=== PATIENT | male | born 1950 ===

== ENCOUNTER 2017-09-18 10:22 | Emergency (ER) | payer MEDICARE ==
[2017-09-18 10:23] VITALS: BMI 22.9
[2017-09-18 10:33] VITALS: RESP 18; TEMP 98.1; O2SAT 99
--- NOTE | 2017-09-18 11:10 | C.PDOC ---
History Of Present Illness 67 year old male presents to the ED for evaluation of cough that is productive of clear phlegm which began after he received a flu shot 4 days ago. Patient denies fever, chills, chest pain, and shortness of breath at this time. Time Seen by Provider: 09/18/17 11:01 Chief Complaint (Nursing): Cough, Cold, Congestion History Per: Patient History/Exam Limitations: no limitations Onset/Duration Of Symptoms: Days (4) Current Symptoms Are (Timing): Still Present Associated Symptoms: Cough, Sputum (clear). denies: Fever, Chills Ear Symptoms: Bilateral: None Additional History Per: Patient Past Medical History Reviewed: Historical Data, Nursing Documentation, Vital Signs Vital Signs: Last Vital Signs Temp 98.1 F 09/18/17 10:31 Pulse 95 H 09/18/17 10:31 Resp 18 09/18/17 10:31 BP 119/61 09/18/17 10:31 Pulse Ox 99 09/18/17 11:10 - Medical History PMH: Benign Prostatic Hyperplasia, CAD, HTN, Hypercholesterolemia Denies: Chronic Kidney Disease Surgical History: No Surg Hx - [facility] Procedures CORONAR ARTERIOGR-2 CATH (12/24/14) CORONARY ARTERY STENT INSERTION [id number] (12/24/14) DX ULTRASOUND NEC (01/31/14) INSERTION OF ONE VASCULAR STENT (12/24/14) LAPAROSCOPIC ROBOTIC ASSISTED PROCEDURE (04/21/14) LEFT HEART CARDIAC CATH (12/24/14) LT HEART ANGIOCARDIOGRAM (12/24/14) PERCUTAN NEEDLE BIOPSY OF PROSTATE (01/31/14) PERCUTANEOUS TRANSLUMINAL CORONARY ANGIOPLASTY [PTCA] (12/24/14) PROCEDURE ON SINGLE VESSEL (12/24/14) RADICAL PROSTATECTOMY (04/21/14) SIMP EXC LYMPH STRUC NEC (04/21/14) Family History: States: Unknown Family Hx - Social History Hx Tobacco Use: No Hx Alcohol Use: No Hx Substance Use: No - Immunization History Hx Tetanus Toxoid Vaccination: No Hx Influenza Vaccination: No Hx Pneumococcal Vaccination: No Review Of Systems Constitutional: Negative for: Fever, Chills Cardiovascular: Negative for: Chest Pain Respiratory: Positive for: Cough, Sputum (clear). Negative for: Shortness of Breath Physical Exam - Physical Exam Appears: Non-toxic, No Acute Distress Skin: Normal Color, Warm, Dry Head: Atraumatic, Normacephalic Eye(s): bilateral: Normal Inspection Ear(s): Bilateral: Normal Nose: Normal, No Discharge Oral Mucosa: Moist Throat: Normal, No Erythema, No Exudate Neck: Supple Chest: Symmetrical, No Deformity, No Tenderness Cardiovascular: Rhythm Regular Respiratory: Normal Breath Sounds, No Rales, No Rhonchi, No Wheezing Neurological/Psych: Oriented x3, Normal Speech, Normal Cognition ED Course And Treatment O2 Sat by Pulse Oximetry: 99 (on RA) Pulse Ox Interpretation: Normal - Radiology CXR: Viewed By Me, Read By Radiologist CXR Interpretation: Yes: No Acute Disease Progress Note: CXR ordered and reviewed. Medical Decision Making Medical Decision Making: IMPRESSION: No focal consolidation, significant pleural effusion, or definite pneumothorax identified. Disposition Counseled Patient/Family Regarding: Diagnosis, Need For Followup - Disposition Referrals: Juli Gomez MD [Medical Doctor] - Disposition: HOME/ ROUTINE Disposition Time: 12:07 Condition: GOOD Additional Instructions: Por favor, rios un seguimiento con espinal mdico en unos wilder. Regrese a la henrietta de emergencias por cualquier sntoma peor, fiebre, escalofros. Please follow up with your doctor in a few days. Return to ER for any worse symptoms, fever, chills. Instructions: Acute Bronchitis (ED) Forms: Gen Discharge Inst Wolof, [facility] (Wolof) - Clinical Impression Clinical Impression: Bronchitis - PA / ADJUNCT INSTRUCTOR CHEMISTRY / Resident Statement MD/DO has reviewed & agrees with the documentation as recorded. - Scribe Statement The provider has reviewed the documentation as recorded by the Scribe (Kori Felipe) All medical record entries made by the Scribe were at my direction and personally dictated by me. I have reviewed the chart and agree that the record accurately reflects my personal performance of the history, physical exam, medical decision making, and the department course for this patient. I have also personally directed, reviewed, and agree with the discharge instructions and disposition.
--- NOTE | 2017-09-18 11:49 | RAD ---
HISTORY: cough phlegm COMPARISON: Chest x-ray performed 08/22/15 TECHNIQUE: Chest PA and lateral FINDINGS: LUNGS: No focal consolidation. Please note that chest x-ray has limited sensitivity for the detection of pulmonary masses. PLEURA: No significant pleural effusion identified. No definite pneumothorax . CARDIOVASCULAR: The cardiomediastinal silhouette appears within normal limits of size. OSSEOUS STRUCTURES: Degenerative changes. VISUALIZED UPPER ABDOMEN: Unremarkable. OTHER FINDINGS: None. IMPRESSION: No focal consolidation, significant pleural effusion, or definite pneumothorax identified.
[2017-09-18 12:25] VITALS: BP 135/64; PULSE 63
== END 2017-09-18 12:24 | disposition home or self-care (01) ==
LOC: C.ER 10:22
DX: J40 Bronchitis, not specified as acute or chronic (principal)

== ENCOUNTER 2018-09-20 07:58 | Emergency (ER) | payer MEDICARE ==
[2018-09-20 07:59] VITALS: BMI 22.9
[2018-09-20 08:16] VITALS: BP 153/68; PULSE 72; RESP 19; TEMP 97.8; O2SAT 100
--- NOTE | 2018-09-20 08:29 | C.PDOC ---
History Of Present Illness Patient reports 3 weeks of cough with cleal phlegm. Denies any other symptoms such as fever, vomiting, chest pain, dyspnea, congestion, headache. He does report that he has lower back pain when he coughs. He denies leg weakness or numbness, and urinary and bowel incontinence. He is able to ambulate with no difficulty. He states that he was instructed to gargle salt water for the cough however it has not been helping. He has not tried any OTC medications for the cough or back pain. Time Seen by Provider: 09/20/18 08:03 Chief Complaint (Nursing): Cough, Cold, Congestion Past Medical History Reviewed: Historical Data, Nursing Documentation, Vital Signs Vital Signs: Last Vital Signs Temp 97.8 F 09/20/18 08:13 Pulse 72 09/20/18 08:13 Resp 19 09/20/18 08:13 BP 153/68 H 09/20/18 08:13 Pulse Ox 100 09/20/18 08:13 - Medical History PMH: Benign Prostatic Hyperplasia, CAD, HTN, Hypercholesterolemia Denies: Chronic Kidney Disease - [facility] Procedures CORONAR ARTERIOGR-2 CATH (12/24/14) CORONARY ARTERY STENT INSERTION [id number] (12/24/14) DX ULTRASOUND NEC (01/31/14) INSERTION OF ONE VASCULAR STENT (12/24/14) LAPAROSCOPIC ROBOTIC ASSISTED PROCEDURE (04/21/14) LEFT HEART CARDIAC CATH (12/24/14) LT HEART ANGIOCARDIOGRAM (12/24/14) PERCUTAN NEEDLE BIOPSY OF PROSTATE (01/31/14) PERCUTANEOUS TRANSLUMINAL CORONARY ANGIOPLASTY [PTCA] (12/24/14) PROCEDURE ON SINGLE VESSEL (12/24/14) RADICAL PROSTATECTOMY (04/21/14) SIMP EXC LYMPH STRUC NEC (04/21/14) Family History: States: Unknown Family Hx - Social History Hx Tobacco Use: No Hx Alcohol Use: No Hx Substance Use: No - Immunization History Hx Tetanus Toxoid Vaccination: No Hx Influenza Vaccination: Yes Hx Pneumococcal Vaccination: Yes Review Of Systems Except As Marked, All Systems Reviewed And Found Negative. Constitutional: Negative for: Fever, Chills Cardiovascular: Negative for: Chest Pain Respiratory: Positive for: Cough. Negative for: Shortness of Breath Gastrointestinal: Negative for: Nausea, Vomiting Genitourinary: Negative for: Dysuria, Incontinence Skin: Negative for: Rash Neurological: Negative for: Numbness Physical Exam - Physical Exam Appears: Well, Non-toxic, No Acute Distress Skin: Normal Color, Warm, Dry Head: Atraumatic Oral Mucosa: Moist Chest: Symmetrical Cardiovascular: Rhythm Regular Respiratory: Normal Breath Sounds Gastrointestinal/Abdominal: Normal Exam Back: Normal Inspection, No CVA Tenderness, No Vertebral Tenderness, No Decreased ROM, No Muscle Spasm, No Paraspinal Tenderness Extremity: Bilateral: Atraumatic, Normal Color And Temperature, Normal ROM Neurological/Psych: Oriented x3 Gait: Steady ED Course And Treatment O2 Sat by Pulse Oximetry: 100 Medical Decision Making Medical Decision Making: Patient with normal vitals and unremarkable exam. Will write Rx for z-pack given 3 weeks of cough. 600mg ibuprofen PO given for back pain. He is able to ambulate without difficulty and reports no weakness or numbness in his lower extremities. No bowel or bladder dysfunction as well. Patient advised to continue with NSAIDs at home for back pain and take over the counter cough medication as needed. Disposition - Disposition Disposition: HOME/ ROUTINE Disposition Time: 08:30 Condition: STABLE Additional Instructions: ANAMARIA NORTON, thank you for letting us take care of you today. Your provider was Dania Ruano MD and you were treated for BACK PAIN. The emergency medical care you received today was directed at your acute symptoms. If you were prescribed any medication, please fill it and take as directed. It may take several days for your symptoms to resolve. Return to the Emergency Department if your symptoms worsen, do not improve, or if you have any other problems. Please contact your doctor or call one of the physicians/clinics you have been referred to that are listed on the Patient Visit Information form that is included in your discharge packet. Bring any paperwork you were given at discharge with you along with any medications you are taking to your follow up visit. Our treatment cannot replace ongoing medical care by a primary care provider outside of the emergency department. Thank you for allowing the [facility] team to be part of your care today. If you had an X-Ray or CT scan: A Radiologist will review the ED reading if any change in treatment is needed we will contact you. If you had a blood, urine, or wound culture: It will take several days for the results, if any change in treatment is needed we will contact you. If you had an STI test: It will take 48 hours for the results. Please call after 1 week if you have not heard back. Instructions: Acute Bronchitis, Adult (DC) Forms: [facility] (Kyrgyz) - Clinical Impression Clinical Impression: Low back pain, Acute bronchitis
== END 2018-09-20 08:50 | disposition home or self-care (01) ==
LOC: C.ER 07:58
DX: J20.9 Acute bronchitis, unspecified (principal); M54.5 Low back pain

== ENCOUNTER 2018-11-30 12:12 | Emergency (ER) | payer MEDICARE ==
[2018-11-30 12:12] VITALS: BMI 22.9
[2018-11-30 12:19] VITALS: BP 149/72; PULSE 66; RESP 20; TEMP 98.5; O2SAT 100
--- NOTE | 2018-11-30 12:58 | C.PDOC ---
History Of Present Illness Patient is a 68 year old male who presents to the ED c/o discomfort in throat with mucus. Patient states that he has just arrived from the [place] on Nov.23 and had testing done there, which showed some type of bacteria that he was prescribed antibiotics for. He states that he has not taken any of these antibiotics. He denies any fever, cough, runny nose, or SOB. Time Seen by Provider: 11/30/18 12:24 Chief Complaint (Nursing): ENT Problem History Per: Patient Onset/Duration Of Symptoms: Days Current Symptoms Are (Timing): Still Present Symptoms Have Been: Continuous Past Medical History Reviewed: Historical Data, Nursing Documentation, Vital Signs Vital Signs: Last Vital Signs Temp 98.5 F 11/30/18 12:14 Pulse 66 11/30/18 12:14 Resp 20 11/30/18 12:14 BP 149/72 11/30/18 12:14 Pulse Ox 100 11/30/18 12:14 - Medical History PMH: Benign Prostatic Hyperplasia, CAD, HTN, Hypercholesterolemia Denies: Chronic Kidney Disease Surgical History: No Surg Hx - [facility] Procedures CORONAR ARTERIOGR-2 CATH (12/24/14) CORONARY ARTERY STENT INSERTION [id number] (12/24/14) DX ULTRASOUND NEC (01/31/14) INSERTION OF ONE VASCULAR STENT (12/24/14) LAPAROSCOPIC ROBOTIC ASSISTED PROCEDURE (04/21/14) LEFT HEART CARDIAC CATH (12/24/14) LT HEART ANGIOCARDIOGRAM (12/24/14) PERCUTAN NEEDLE BIOPSY OF PROSTATE (01/31/14) PERCUTANEOUS TRANSLUMINAL CORONARY ANGIOPLASTY [PTCA] (12/24/14) PROCEDURE ON SINGLE VESSEL (12/24/14) RADICAL PROSTATECTOMY (04/21/14) SIMP EXC LYMPH STRUC NEC (04/21/14) Family History: States: Unknown Family Hx - Social History Hx Tobacco Use: No Hx Alcohol Use: No Hx Substance Use: No - Immunization History Hx Tetanus Toxoid Vaccination: No Hx Influenza Vaccination: Yes Hx Pneumococcal Vaccination: Yes Review Of Systems Constitutional: Negative for: Fever ENT: Positive for: Throat Pain. Negative for: Nose Discharge Respiratory: Negative for: Cough, Shortness of Breath Physical Exam - Physical Exam Appears: Non-toxic, No Acute Distress, Other (speaking full sentences ) Skin: Normal Color, Warm, Dry Head: Atraumatic, Normacephalic Oral Mucosa: Moist Throat: No Exudate, No Drooling, Other (No tonsilar swelling. Uvula midline and normal in appearance ) Neck: Normal ROM, Supple Chest: Symmetrical, No Deformity Cardiovascular: Rhythm Regular Respiratory: Normal Breath Sounds, No Rales, No Rhonchi, No Wheezing Gastrointestinal/Abdominal: Soft, No Tenderness Extremity: Normal ROM Neurological/Psych: Oriented x3, Normal Speech, Normal Cognition ED Course And Treatment O2 Sat by Pulse Oximetry: 100 (on RA) Pulse Ox Interpretation: Normal Progress Note: Patient c/o sore throat and sputum in throat. He was seen in [place] and had "pharyngeal culture" done, which showed Strep A that is resistant to PCN and other PO antibiotics, sensitive to amikacin, genatamicin, etc. Patient has normal pharyngeal exam - will repeat strep swab and throat culture, and refer patient to ENT. Will not start antibiotics at this time. Disposition Counseled Patient/Family Regarding: Studies Performed, Diagnosis, Need For Followup, Rx Given - Disposition Referrals: Donald Mott MD [Staff Provider] - Juli Gomez MD [Medical Doctor] - Disposition: HOME/ ROUTINE Disposition Time: 13:10 Condition: STABLE Additional Instructions: FOLLOW UP WITH EAR NOSE THROAT SPECIALIST WITHIN 1 WEEK IF YOUR CULTURE COMES BACK POSITIVE I WILL CALL YOU AND LET YOU KNOW RETURN TO EMERGENCY ROOM IF SYMPTOMS BECOME WORSE SIGUE CON EL ESPECIALISTA EN GARGANTA DE OTRA NARIZ DENTRO DE 1 SEMANA SI TU CULTURA VUELVE POSITIVO TE LLAMAR Y TE HACEMOS SABER VUELVA A LA ISIDORO DE EMERGENCIA SI LOS SNTOMAS SE HACEN PEOR Prescriptions: Ibuprofen [Motrin Tab] 600 mg PO Q6 PRN #30 tab PRN Reason: fever/pain Phenol/Glycerin [Chloraseptic Max Sagamore] 1 spray MM Q6 PRN #1 spray PRN Reason: THROAT PAIN Instructions: Sore Throat, Adult (DC) Forms: [facility] (Syriac) Print Language: LITHUANIAN - Clinical Impression Clinical Impression: Sore throat - Scribe Statement The provider has reviewed the documentation as recorded by the Scribrhoda Velazquez All medical record entries made by the Scribe were at my direction and personally dictated by me. I have reviewed the chart and agree that the record accurately reflects my personal performance of the history, physical exam, medical decision making, and the department course for this patient. I have also personally directed, reviewed, and agree with the discharge instructions and disposition.
== END 2018-11-30 13:45 | disposition home or self-care (01) ==
LOC: C.ER 12:12
DX: J02.9 Acute pharyngitis, unspecified (principal)

== ENCOUNTER 2018-12-08 03:59 | Emergency (ER) | payer MEDICARE ==
[2018-12-08 03:59] VITALS: BMI 22.9
[2018-12-08 04:19] VITALS: RESP 18
--- NOTE | 2018-12-08 04:21 | C.PDOC ---
History Of Present Illness 68 yr old male w/ hx of CAD, HTN, HLD p/w cough, nasal congestion. Pt notes x3 months of intermittent cough and nasal congestion. He notes that he was here one week prior and notes that his symptoms have not improved. He notes that he was seen for similar issues that have remitted and returned 3 months ago. No fevers, chills or night sweats. No neck stiffness. No fall or trauma. No headache. No sinus pain or pressure. No ear pain. No other complaints. Time Seen by Provider: 12/08/18 04:14 Chief Complaint (Nursing): Cough, Cold, Congestion Past Medical History Vital Signs: Last Vital Signs Temp 99.5 F 12/08/18 04:14 Pulse 98 H 12/08/18 04:14 Resp 18 12/08/18 04:14 BP 163/70 H 12/08/18 04:14 Pulse Ox 97 12/08/18 04:14 - Medical History PMH: Benign Prostatic Hyperplasia, CAD, HTN, Hypercholesterolemia Denies: [facility] Procedures CORONAR ARTERIOGR-2 CATH (12/24/14) CORONARY ARTERY STENT INSERTION [id number] (12/24/14) DX ULTRASOUND NEC (01/31/14) INSERTION OF ONE VASCULAR STENT (12/24/14) LAPAROSCOPIC ROBOTIC ASSISTED PROCEDURE (04/21/14) LEFT HEART CARDIAC CATH (12/24/14) LT HEART ANGIOCARDIOGRAM (12/24/14) PERCUTAN NEEDLE BIOPSY OF PROSTATE (01/31/14) PERCUTANEOUS TRANSLUMINAL CORONARY ANGIOPLASTY [PTCA] (12/24/14) PROCEDURE ON SINGLE VESSEL (12/24/14) RADICAL PROSTATECTOMY (04/21/14) SIMP EXC LYMPH STRUC NEC (04/21/14) Family History: States: Unknown Family Hx - Social History Hx Tobacco Use: No Hx Alcohol Use: Yes Hx Substance Use: No - Immunization History Hx Tetanus Toxoid Vaccination: No Hx Influenza Vaccination: No Hx Pneumococcal Vaccination: No Review Of Systems Constitutional: Negative for: Fever, Chills, Sweats, Weakness, Malaise Eyes: Negative for: Pain, Vision Change ENT: Positive for: Nose Congestion. Negative for: Ear Pain, Ear Discharge, Nose Pain Cardiovascular: Negative for: Chest Pain, Palpitations, Orthopnea, Paroxysmal Noc. Dyspnea Respiratory: Positive for: Cough. Negative for: Shortness of Breath, Hemoptysis, SOB with Excertion, Pleuritic Pain Gastrointestinal: Negative for: Nausea, Vomiting, Abdominal Pain, Diarrhea, Constipation Genitourinary: Negative for: Dysuria, Frequency, Hematuria Musculoskeletal: Negative for: Neck Pain, Shoulder Pain, Back Pain Skin: Negative for: Rash, Lesions Neurological: Negative for: Weakness, Numbness, Confusion, Seizures, Altered Mental Status Psych: Negative for: Anxiety Physical Exam - Physical Exam Appears: Well, Non-toxic Skin: Normal Color, Warm, Dry Head: Atraumatic, Normacephalic Eye(s): bilateral: Normal Inspection, PERRL, EOMI Ear(s): Bilateral: Normal Nose: Normal, No Flaring, No Epistaxis, No Deformity Oral Mucosa: Moist Tongue: Normal Appearing Lips: Normal Appearing Teeth: Normal Dentition Gingiva: Normal Appearing Throat: Normal, No Erythema, No Exudate Neck: Normal, Normal ROM, Trachea Midline, Supple (no meningeal signs) Chest: Symmetrical, No Deformity Cardiovascular: Rhythm Regular Respiratory: Normal Breath Sounds, No Decreased Breath Sounds, No Rales, No Rhonchi, No Stridor, No Wheezing Gastrointestinal/Abdominal: Normal Exam Back: Normal Inspection, No CVA Tenderness, No Vertebral Tenderness Extremity: Normal ROM, No Tenderness, No Calf Tenderness Neurological/Psych: Oriented x3, Normal Speech, Normal Cognition, Normal Motor ED Course And Treatment O2 Sat by Pulse Oximetry: 97 Medical Decision Making Medical Decision Makin yr old male w/ hx of CAD, HTN, HLD p/w nasal congestion, cough. Lungs CTA. No meningeal signs. No GI or complaints. Nasal congestion without signs of trauma. No complaints of CP or sob. No FND. Likely flu vs strep throat. No odynophagia, dysphagia or change in phonation. [id number] +FLU Negative strep CXR unremarkable FLu, will rx clear for d/c home with return indications and f/u. Pt agreeable to plan. Disposition - Disposition Referrals: [facility] [Outside] [facility] [Outside] [facility] [Outside] Juli Gomez MD [Medical Doctor] - Disposition: HOME/ ROUTINE Disposition Time: 05:57 Condition: GOOD Additional Instructions: ANAMARIA NORTON, thank you for letting us take care of you today. Your provider was Eric Guerrero and you were treated for SORE THROAT. The emergency medical care you received today was directed at your acute symptoms. If you were prescribed any medication, please fill it and take as directed. It may take several days for your symptoms to resolve. Return to the Emergency Department if your symptoms worsen, do not improve, or if you have any other problems. Please contact your doctor or call one of the physicians/clinics you have been referred to that are listed on the Patient Visit Information form that is included in your discharge packet. Bring any paperwork you were given at discharge with you along with any medications you are taking to your follow up visit. Our treatment cannot replace ongoing medical care by a primary care provider outside of the emergency department. Thank you for allowing the [facility] team to be part of your care today. If you had an X-Ray or CT scan: A Radiologist will review the ED reading if any change in treatment is needed we will contact you. If you had a blood, urine, or wound culture: It will take several days for the results, if any change in treatment is needed we will contact you. If you had an STI test: It will take 48 hours for the results. Please call after 1 week if you have not heard back. Prescriptions: Acetaminophen with Codeine [Tylenol with Codeine #3 Tablet] 1 each PO Q12H PRN 3 Days #6 tablet PRN Reason: Cough Oseltamivir Cap [Tamiflu] 75 mg PO BID 5 Days #10 cap Instructions: Influenza (ED), Upper Respiratory Infection (ED) Forms: [employer] (Nigerien), [employer] (Kittitian) Print Language: FAROESE - Clinical Impression Clinical Impression: Influenza, Viral URI
[2018-12-08 04:59] LABS: INFLUENZA A B POS FOR INFLUENZA A (NEGATIVE)
[2018-12-08 06:15] VITALS: BP 170/73; PULSE 85; TEMP 99.4
[2018-12-08 06:57] VITALS: O2SAT 97
--- NOTE | 2018-12-08 15:54 | RAD ---
Date of service: 12/08/2018 HISTORY: Cough COMPARISON: Comparison chest dated 09/18/2017. TECHNIQUE: Chest PA and lateral FINDINGS: LUNGS: No active pulmonary disease. PLEURA: No significant pleural effusion identified. No pneumothorax apparent. CARDIOVASCULAR: No aortic atherosclerotic calcification present. Normal cardiac size. No pulmonary vascular congestion. OSSEOUS STRUCTURES: Mild multilevel degenerative spondylosis of the thoracic spine VISUALIZED UPPER ABDOMEN: Normal. OTHER FINDINGS: None. IMPRESSION: No active disease.
== END 2018-12-08 06:15 | disposition home or self-care (01) ==
LOC: C.ER 03:59
DX: J11.1 Influenza due to unidentified influenza virus with other respiratory manifestations (principal)

== ENCOUNTER 2019-02-09 11:00 | Emergency (ER) | payer MEDICARE ==
[2019-02-09 11:00] VITALS: BMI 22.9
[2019-02-09 11:27] VITALS: RESP 16
[2019-02-09] MEDS ORDERED: Dexamethasone 4 mg/1 ml IM STA (12:00)
--- NOTE | 2019-02-09 12:27 | C.PDOC ---
History Of Present Illness 68 year old male presents to ED with complaint of burning sensation to the side of his left leg and foot for the past 2 weeks. Patient was seen by Dr. Gomez and was told everything was normal. Patient denies history of arterial disease and allergies to medications. He has a PMHx of hypertension. Patient denies trauma, fall, weakness, and numbness. Time Seen by Provider: 02/09/19 11:53 Chief Complaint (Nursing): Lower Extremity Problem/Injury History Per: Patient History/Exam Limitations: no limitations Onset/Duration Of Symptoms: Other (2 weeks) Current Symptoms Are (Timing): Still Present Past Medical History Reviewed: Historical Data, Nursing Documentation, Vital Signs Vital Signs: Last Vital Signs Temp 98.8 F 02/09/19 11:25 Pulse 57 L 02/09/19 11:25 Resp 16 02/09/19 11:25 BP 148/72 02/09/19 11:25 Pulse Ox 98 02/09/19 11:25 Primary Care Provider: Mick Bennett - Medical History PMH: Benign Prostatic Hyperplasia, CAD, HTN, Hypercholesterolemia Denies: Chronic Kidney Disease Surgical History: No Surg Hx - [facility] Procedures CORONAR ARTERIOGR-2 CATH (12/24/14) CORONARY ARTERY STENT INSERTION [id number] (12/24/14) DX ULTRASOUND NEC (01/31/14) INSERTION OF ONE VASCULAR STENT (12/24/14) LAPAROSCOPIC ROBOTIC ASSISTED PROCEDURE (04/21/14) LEFT HEART CARDIAC CATH (12/24/14) LT HEART ANGIOCARDIOGRAM (12/24/14) PERCUTAN NEEDLE BIOPSY OF PROSTATE (01/31/14) PERCUTANEOUS TRANSLUMINAL CORONARY ANGIOPLASTY [PTCA] (12/24/14) PROCEDURE ON SINGLE VESSEL (12/24/14) RADICAL PROSTATECTOMY (04/21/14) SIMP EXC LYMPH STRUC NEC (04/21/14) Family History: States: Unknown Family Hx - Social History Hx Tobacco Use: No Hx Alcohol Use: Yes Hx Substance Use: No - Immunization History Hx Tetanus Toxoid Vaccination: No Hx Influenza Vaccination: No Hx Pneumococcal Vaccination: No Review Of Systems Constitutional: Negative for: Fever, Chills, Weakness Musculoskeletal: Positive for: Leg Pain (burning sensation to the outer side of his left leg and foot). Negative for: Back Pain Skin: Negative for: Rash Neurological: Negative for: Weakness, Numbness, Incoordination, Headache Physical Exam - Physical Exam Appears: Well, Non-toxic, No Acute Distress Skin: Normal Color, Warm, Dry, No Rash Head: Atraumatic, Normacephalic Eye(s): bilateral: Normal Inspection, PERRL, EOMI Oral Mucosa: Moist Neck: Normal ROM, Supple Chest: Symmetrical, No Deformity, No Tenderness Cardiovascular: Rhythm Regular, No Friction Rub, No Murmur Respiratory: No Accessory Muscle Use, No Rales, No Rhonchi, No Wheezing Gastrointestinal/Abdominal: Soft, No Tenderness Extremity: No Tenderness, No Calf Tenderness, Capillary Refill (<2 seconds), No Swelling Extremity: Bilateral: Atraumatic, Normal Color And Temperature, Normal ROM Pulses: Left Dorsalis Pedis: Normal, Right Dorsalis Pedis: Normal Neurological/Psych: Oriented x3, Normal Speech, Normal Cognition, Normal Motor, Normal Sensation Gait: Steady ED Course And Treatment O2 Sat by Pulse Oximetry: 98 (in RA) Pulse Ox Interpretation: Normal Medical Decision Making Medical Decision Making: Initial Plan: Decadron IM Toradol IM On re-exam, the patient is resting comfortably. Lungs are CTA, heart is RRR, abdomen is soft, non-tender and tolerating PO well. ambulatory in the ED with steady gait. Follow up with the medical doctor within 1-2 days. Return if worsened. Disposition - Disposition Referrals: Hermes Phelps MD [Non-Staff] - Disposition: HOME/ ROUTINE Disposition Time: 12:00 Condition: GOOD Additional Instructions: Follow up with the medical doctor within 1-2 days return if worsened. Prescriptions: Cyclobenzaprine [Flexeril] 5 mg PO TID #21 tab Naproxen [Naprosyn] 500 mg PO BID #20 tab predniSONE [Prednisone] 20 mg PO BID #10 tab Instructions: [facility] Forms: [employer] Bank (Montenegrin) Print Language: NIGERIAN - Clinical Impression Clinical Impression: [facility] - PA / ATM MANAGER / Resident Statement MD/DO has reviewed & agrees with the documentation as recorded. (Sophia Wilcox) - Scribe Statement The provider has reviewed the documentation as recorded by the Scribe (Sophia Wilcox) All medical record entries made by the Scribe were at my direction and personally dictated by me. I have reviewed the chart and agree that the record accurately reflects my personal performance of the history, physical exam, medical decision making, and the department course for this patient. I have also personally directed, reviewed, and agree with the discharge instructions and disposition.
[2019-02-09 12:37] VITALS: BP 138/74; PULSE 64; TEMP 98.7
[2019-02-09 22:01] VITALS: O2SAT 98
== END 2019-02-09 12:37 | disposition home or self-care (01) ==
LOC: C.ER 11:00
DX: M54.30 Sciatica, unspecified side (principal)